=== PATIENT | female | born 1935 | race Caucasian/White ===

== ENCOUNTER 2021-04-10 11:43 | Inpatient (IN) ==
[2021-04-10] MEDS ORDERED: Isovue-370 500 ML BOTTLE IVP ONE (12:27)
[2021-04-10] MEDS ORDERED: Tdap (Boostrix) Vaccine 0.5 ML SYRINGE IM ONE (12:33)
[2021-04-10] MEDS ORDERED: *HR* HYDROcodone/Acet 5/325 mg TABLET PO ONE (12:33)
[2021-04-10 12:56] LABS: Basophils # 0.1 K/mcL (0.0-0.2); Basophils % 0.8 %; Eosinophils # 0.1 K/mcL (0.0-0.6); Eosinophils % 1.2 %; Hematocrit 37.1 % (35.3-44.9); Hemoglobin 11.7 g/dL (11.5-15.4); Immature Granulocytes % 0.5 % (0-4); Lymphocytes # 2.6 K/mcL (0.6-4.6); Mean Corpuscular HGB Conc 31.5 g/dL (31.6-35.5); Mean Corpuscular Hemoglobin 27.9 pg (28.0-33.3); Mean Corpuscular Volume 88.5 fL (83.0-100.0); Mean Platelet Volume 10.8 fL (9.4-12.4); Monocytes # 1.2 K/mcL (0.0-1.3); Monocytes % 16.3 %; Neutrophils # 3.4 K/mcL (1.6-8.9); Platelet Count 169 K/mcL (140-400); Red Blood Count 4.19 M/mcL (3.82-4.97); Red Cell Distribution Width 17.4 % (11.5-14.5); Segmented Neutrophils % 46.2 %; White Blood Count 7.4 K/mcL (4.3-11.1)
[2021-04-10 13:07] LABS: INR 1.3; Prothrombin Time 14.9 Seconds (9.4-12.1)
[2021-04-10 13:10] LABS: Activated Partial Thrombo Time 32.8 Seconds (26.0-36.0); Albumin 3.5 g/dL (3.5-5.7); Albumin/Globulin Ratio 1.1 (1.1-2.2); Bilirubin,Direct 0.1 mg/dL (0.0-0.2); Bilirubin,Indirect 0.3 mg/dL (0.0-1.0); Bilirubin,Total 0.4 mg/dL (0.3-1.0); Calcium 9.4 mg/dL (8.6-10.3); Globulin 3.3 g/dL (2.4-3.5); Potassium 4.2 mEq/L (3.5-5.1); Total Protein 6.8 g/dL (6.4-8.9); Troponin I 0.03 ng/mL (< 0.04)
[2021-04-10] MEDS ORDERED: *HR* FentaNYL (PF) 100 MCG/2 ML VIAL IVP ONE (16:26)
[2021-04-10] MEDS ORDERED: *HR* FentaNYL (PF) 100 MCG/2 ML VIAL ONE (16:29)
[2021-04-10] MEDS ORDERED: Mag Hydrox/Al Hydrox/Simeth 30 ML UDC PO PRN (17:34)
[2021-04-10] MEDS ORDERED: Acetaminophen 325 MG TABLET PO PRN (17:34)
[2021-04-10] MEDS ORDERED: Naloxone 0.4 MG/ML INJ IVP PRN (17:34)
[2021-04-10] MEDS ORDERED: *HR* Dextrose 50 % in Water (Syg) 50 ML SYRINGE IVP PRN (17:36)
[2021-04-10] MEDS ORDERED: D5% in Water 1,000 ML IVC PRN (17:36)
[2021-04-10] MEDS ORDERED: Dextrose Gel 15 GM/37.5 ML TUBE PO PRN ×2 (17:36)
[2021-04-10] MEDS: Insulin LISPRO 300 UNITS/3 ML VIAL SUBQ SCH (21:04)
[2021-04-10] MEDS: *HR* OxyCODONE Immed Rel 5 MG TABLET PO PRN (21:12)
[2021-04-10] MEDS: traZODone 50 MG TABLET PO SCH (21:13)
[2021-04-10] MEDS: Apixaban 2.5 MG TABLET PO SCH (21:13)
[2021-04-10] MEDS: Insulin DETEMIR 100 UNIT/ML X5UNITS SUBQ SCH (21:13)
[2021-04-10] MEDS: Pregabalin 25 MG CAPSULE PO SCH (21:13)
[2021-04-11] MEDS ORDERED: *HR* Metoprolol 5 MG/5 ML VIAL IVP ONE ×4 (04:17→06:18)
[2021-04-11 04:40] LABS: Hematocrit 35.7 % (35.3-44.9); Hemoglobin 11.4 g/dL (11.5-15.4); Mean Corpuscular HGB Conc 31.9 g/dL (31.6-35.5); Mean Corpuscular Hemoglobin 27.9 pg (28.0-33.3); Mean Corpuscular Volume 87.3 fL (83.0-100.0); Mean Platelet Volume 10.6 fL (9.4-12.4); Platelet Count 158 K/mcL (140-400); Red Blood Count 4.09 M/mcL (3.82-4.97); Red Cell Distribution Width 17.1 % (11.5-14.5); White Blood Count 7.4 K/mcL (4.3-11.1)
[2021-04-11 04:55] LABS: Calcium 8.9 mg/dL (8.6-10.3); Potassium 4.2 mEq/L (3.5-5.1)
[2021-04-11] MEDS ORDERED: *HR* Metoprolol 5 MG/5 ML VIAL IVP PRN (08:48)
[2021-04-11] MEDS: allopurinoL 100 MG TABLET PO SCH (09:09)
[2021-04-11] MEDS: hydroCHLOROthiazide 25 MG TABLET PO SCH (09:10)
[2021-04-11] MEDS: Furosemide 20 MG TABLET PO SCH (09:10)
[2021-04-11] MEDS: Pregabalin 25 MG CAPSULE PO SCH ×2 (09:10→20:56)
[2021-04-11] MEDS: Insulin DETEMIR 100 UNIT/ML X5UNITS SUBQ SCH ×2 (09:10→20:57)
[2021-04-11] MEDS: Insulin LISPRO 300 UNITS/3 ML VIAL SUBQ SCH ×4 (09:12→20:51)
[2021-04-11] MEDS: Apixaban 2.5 MG TABLET PO SCH (20:56)
[2021-04-11] MEDS: traZODone 50 MG TABLET PO SCH (20:57)
[2021-04-12] MEDS: *HR* OxyCODONE Immed Rel 5 MG TABLET PO PRN ×2 (02:37→16:08)
[2021-04-12 03:11] LABS: Calcium 8.8 mg/dL (8.6-10.3); Potassium 4.1 mEq/L (3.5-5.1)
[2021-04-12 03:16] LABS: Hematocrit 34.5 % (35.3-44.9); Hemoglobin 10.7 g/dL (11.5-15.4); Mean Corpuscular Hemoglobin 27.3 pg (28.0-33.3); Mean Platelet Volume 11.9 fL (9.4-12.4); Platelet Count 158 K/mcL (140-400); Red Blood Count 3.92 M/mcL (3.82-4.97); Red Cell Distribution Width 17.2 % (11.5-14.5); White Blood Count 7.4 K/mcL (4.3-11.1)
[2021-04-12] MEDS: Insulin LISPRO 300 UNITS/3 ML VIAL SUBQ SCH ×4 (08:00→20:32)
[2021-04-12] MEDS: Insulin DETEMIR 100 UNIT/ML X5UNITS SUBQ SCH ×2 (08:00→20:45)
[2021-04-12] MEDS: allopurinoL 100 MG TABLET PO SCH (08:01)
[2021-04-12] MEDS: Furosemide 20 MG TABLET PO SCH (08:01)
[2021-04-12] MEDS: Pregabalin 25 MG CAPSULE PO SCH ×2 (08:02→20:45)
[2021-04-12] MEDS: hydroCHLOROthiazide 25 MG TABLET PO SCH (08:04)
[2021-04-12] MEDS: traZODone 50 MG TABLET PO SCH (20:44)
[2021-04-12] MEDS: Melatonin 3 MG TABLET PO PRN (20:44)
[2021-04-12] MEDS: Apixaban 2.5 MG TABLET PO SCH (20:44)
[2021-04-13] MEDS: Insulin LISPRO 300 UNITS/3 ML VIAL SUBQ SCH ×4 (08:08→21:18)
[2021-04-13 08:57] LABS: Hematocrit 35.4 % (35.3-44.9); Hemoglobin 10.9 g/dL (11.5-15.4); Mean Corpuscular HGB Conc 30.8 g/dL (31.6-35.5); Mean Corpuscular Volume 87.8 fL (83.0-100.0); Mean Platelet Volume 11.6 fL (9.4-12.4); Platelet Count 164 K/mcL (140-400); Red Blood Count 4.03 M/mcL (3.82-4.97); Red Cell Distribution Width 16.6 % (11.5-14.5); White Blood Count 6.7 K/mcL (4.3-11.1)
[2021-04-13 09:24] LABS: Calcium 8.9 mg/dL (8.6-10.3)
[2021-04-13] MEDS: *HR* HYDROcodone/Acet 5/325 mg TABLET PO PRN (09:34)
[2021-04-13] MEDS: Pregabalin 25 MG CAPSULE PO SCH ×2 (09:35→21:17)
[2021-04-13] MEDS: allopurinoL 100 MG TABLET PO SCH (09:35)
[2021-04-13] MEDS: Insulin DETEMIR 100 UNIT/ML X5UNITS SUBQ SCH ×2 (09:36→21:18)
[2021-04-13] MEDS: Furosemide 20 MG TABLET PO SCH (09:36)
[2021-04-13] MEDS: *HR* OxyCODONE Immed Rel 5 MG TABLET PO PRN (13:19)
[2021-04-13] MEDS ORDERED: *HR* HYDROmorphone 2 MG/ML SYRINGE IVP ONE (15:10)
[2021-04-13] MEDS: traZODone 50 MG TABLET PO SCH (21:17)
[2021-04-13] MEDS: Apixaban 2.5 MG TABLET PO SCH (21:17)
[2021-04-14 06:02] LABS: Hematocrit 36.4 % (35.3-44.9); Hemoglobin 11.6 g/dL (11.5-15.4); Mean Corpuscular HGB Conc 31.9 g/dL (31.6-35.5); Mean Corpuscular Hemoglobin 27.4 pg (28.0-33.3); Mean Corpuscular Volume 86.1 fL (83.0-100.0); Mean Platelet Volume 11.6 fL (9.4-12.4); Platelet Count 150 K/mcL (140-400); Red Blood Count 4.23 M/mcL (3.82-4.97); Red Cell Distribution Width 16.9 % (11.5-14.5); White Blood Count 7.6 K/mcL (4.3-11.1)
[2021-04-14 06:13] LABS: Calcium 9.1 mg/dL (8.6-10.3); Potassium 4.7 mEq/L (3.5-5.1)
[2021-04-14] MEDS: *HR* HYDROcodone/Acet 5/325 mg TABLET PO PRN ×2 (09:24→23:24)
[2021-04-14] MEDS: Pregabalin 25 MG CAPSULE PO SCH (09:24)
[2021-04-14] MEDS: Insulin DETEMIR 100 UNIT/ML X5UNITS SUBQ SCH (09:25)
[2021-04-14] MEDS: allopurinoL 100 MG TABLET PO SCH (09:25)
[2021-04-14] MEDS: Furosemide 20 MG TABLET PO SCH (09:25)
[2021-04-14] MEDS: Insulin LISPRO 300 UNITS/3 ML VIAL SUBQ SCH ×3 (09:25→17:22)
[2021-04-14] MEDS ORDERED: Semaglutide [Ozempic] 1 MG/0.75 ML Pen.Injctr SQ SCH (18:41)
[2021-04-14] MEDS: traZODone 50 MG TABLET PO SCH (23:24)
[2021-04-14] MEDS: Apixaban 2.5 MG TABLET PO SCH (23:24)
[2021-04-15] MEDS: Insulin LISPRO 300 UNITS/3 ML VIAL SUBQ SCH ×5 (04:00→20:29)
[2021-04-15] MEDS: Insulin DETEMIR 100 UNIT/ML X5UNITS SUBQ SCH ×3 (04:01→20:30)
[2021-04-15] MEDS: Pregabalin 25 MG CAPSULE PO SCH ×3 (04:01→20:23)
[2021-04-15] MEDS: *HR* OxyCODONE Immed Rel 5 MG TABLET PO PRN ×2 (04:07→11:47)
[2021-04-15] MEDS: Furosemide 20 MG TABLET PO SCH (08:05)
[2021-04-15] MEDS: allopurinoL 100 MG TABLET PO SCH (08:06)
[2021-04-15 11:50] LABS: Bacteria,Urine Many per hpf (None-Few); Bilirubin,Urine Negative (Negative); Blood,Urine Negative (Negative); Clarity,Urine Clear (Clear); Color,Urine Yellow (Yellow); Glucose,Urine (UA) Normal (Normal); Hyaline Casts,Urine Few per lpf (None Seen); Ketones,Urine Negative (Negative); Leukocyte Esterase,Urine Moderate (Negative); Mucus,Urine Few per lpf (None-Few); Nitrite,Urine Positive (Negative); PH,Urine 5.5 pH Units (5.0-8.0); Protein,Urine Negative (Neg-Trace); RBC,Urine 0-3 per hpf (0-3); Specific Gravity,Urine 1.016 (1.010-1.025); Squamous Epithelial Cell,Urine Few per hpf (None-Few); Urobilinogen,Urine Normal (Normal)
[2021-04-15] MEDS: traZODone 50 MG TABLET PO SCH (20:22)
[2021-04-15] MEDS: Apixaban 2.5 MG TABLET PO SCH (20:23)
[2021-04-15] MEDS: Melatonin 3 MG TABLET PO PRN (20:24)
[2021-04-16] MEDS: *HR* OxyCODONE Immed Rel 5 MG TABLET PO PRN (08:21)
[2021-04-16] MEDS: Furosemide 20 MG TABLET PO SCH (08:22)
[2021-04-16] MEDS: Pregabalin 25 MG CAPSULE PO SCH ×2 (08:22→20:14)
[2021-04-16] MEDS: allopurinoL 100 MG TABLET PO SCH (08:22)
[2021-04-16] MEDS: Insulin DETEMIR 100 UNIT/ML X5UNITS SUBQ SCH ×2 (08:27→21:28)
[2021-04-16] MEDS: Insulin LISPRO 300 UNITS/3 ML VIAL SUBQ SCH ×4 (09:25→20:33)
[2021-04-16 14:54] LABS: Adenovirus Not Detected (Not Detect); Bordetella Pertussis Not Detected (Not Detect); Chlamydophila pneumoniae Not Detected (Not Detect); Coronavirus 229E Not Detected (Not Detect); Coronavirus HKU1 Not Detected (Not Detect); Coronavirus NL63 Not Detected (Not Detect); Coronavirus OC43 Not Detected (Not Detect); Human Metapneumovirus Not Detected (Not Detect); Human Rhinovirus/Enterovirus Not Detected (Not Detect); Influenza A Subtype 2009 H1 Not Detected (Not Detect); Influenza B Not Detected (Not Detect); Mycoplasma pneumoniae Not Detected (Not Detect); Parainfluenza Virus 1 Not Detected (Not Detect); Parainfluenza Virus 2 Not Detected (Not Detect); Parainfluenza Virus 3 Not Detected (Not Detect); Parainfluenza Virus 4 Not Detected (Not Detect); Respiratory Syncytial Virus Not Detected (Not Detect)
[2021-04-16 14:59] LABS: SARS-CoV-2 DETECTED (Not Detect)
[2021-04-16] MEDS: traZODone 50 MG TABLET PO SCH (20:15)
[2021-04-16] MEDS: Apixaban 2.5 MG TABLET PO SCH (20:15)
[2021-04-17] MEDS: Insulin LISPRO 300 UNITS/3 ML VIAL SUBQ SCH ×4 (08:07→20:14)
[2021-04-17] MEDS: allopurinoL 100 MG TABLET PO SCH (10:09)
[2021-04-17] MEDS: Pregabalin 25 MG CAPSULE PO SCH ×2 (10:09→20:24)
[2021-04-17] MEDS: Furosemide 20 MG TABLET PO SCH (10:09)
[2021-04-17] MEDS: Insulin DETEMIR 100 UNIT/ML X5UNITS SUBQ SCH (10:12)
[2021-04-17] MEDS: *HR* HYDROcodone/Acet 5/325 mg TABLET PO PRN (10:36)
[2021-04-17 13:13] LABS: Estimated Average Glucose 160 mg/dl; Hemoglobin A1C 7.2 %
[2021-04-17] MEDS: traZODone 50 MG TABLET PO SCH (20:24)
[2021-04-17] MEDS: Apixaban 2.5 MG TABLET PO SCH (20:24)
[2021-04-18] MEDS: Pregabalin 25 MG CAPSULE PO SCH ×2 (09:06→20:50)
[2021-04-18] MEDS: Insulin LISPRO 300 UNITS/3 ML VIAL SUBQ SCH ×4 (09:06→20:50)
[2021-04-18] MEDS: allopurinoL 100 MG TABLET PO SCH (09:07)
[2021-04-18] MEDS: Furosemide 20 MG TABLET PO SCH (09:07)
[2021-04-18] MEDS: Ondansetron ODT 4 MG TAB.RAPDIS SL PRN (16:47)
[2021-04-18] MEDS: *HR* OxyCODONE Immed Rel 5 MG TABLET PO PRN (16:47)
[2021-04-18] MEDS: Apixaban 2.5 MG TABLET PO SCH (20:49)
[2021-04-18] MEDS: traZODone 50 MG TABLET PO SCH (20:50)
[2021-04-19] MEDS: Pregabalin 25 MG CAPSULE PO SCH ×2 (07:52→21:00)
[2021-04-19] MEDS: Furosemide 20 MG TABLET PO SCH (07:52)
[2021-04-19] MEDS: *HR* OxyCODONE Immed Rel 5 MG TABLET PO PRN (07:52)
[2021-04-19] MEDS: Insulin LISPRO 300 UNITS/3 ML VIAL SUBQ SCH ×4 (08:03→20:53)
[2021-04-19] MEDS: allopurinoL 100 MG TABLET PO SCH (09:55)
[2021-04-19] MEDS ORDERED: Perflutren Lipid Microsphere 1.3 ML in 0.9 % Sodium Chloride 8.7 ML IVP PRN (13:01)
[2021-04-19 17:24] LABS: Hematocrit 37.2 % (35.3-44.9); Hemoglobin 11.1 g/dL (11.5-15.4); Mean Corpuscular HGB Conc 29.8 g/dL (31.6-35.5); Mean Corpuscular Hemoglobin 27.1 pg (28.0-33.3); Mean Platelet Volume 11.1 fL (9.4-12.4); Platelet Count 230 K/mcL (140-400); Red Blood Count 4.09 M/mcL (3.82-4.97); Red Cell Distribution Width 17.3 % (11.5-14.5); White Blood Count 7.1 K/mcL (4.3-11.1)
[2021-04-19 17:40] LABS: Calcium 8.8 mg/dL (8.6-10.3); Potassium 5.6 mEq/L (3.5-5.1)
[2021-04-19] MEDS: traZODone 50 MG TABLET PO SCH (21:00)
[2021-04-19] MEDS: Apixaban 2.5 MG TABLET PO SCH (21:00)
[2021-04-19] MEDS ORDERED: 0.9 % Sodium Chloride 1,000 ML IV ONE (22:33)
[2021-04-20 07:04] LABS: Basophils % 0.3 %; Eosinophils # 0.4 K/mcL (0.0-0.6); Eosinophils % 4.4 %; Hematocrit 40.8 % (35.3-44.9); Immature Granulocytes % 0.6 % (0-4); Lymphocytes # 2.9 K/mcL (0.6-4.6); Lymphocytes % 30.3 %; Mean Corpuscular HGB Conc 29.4 g/dL (31.6-35.5); Mean Corpuscular Hemoglobin 26.9 pg (28.0-33.3); Mean Corpuscular Volume 91.5 fL (83.0-100.0); Mean Platelet Volume 10.7 fL (9.4-12.4); Monocytes # 0.9 K/mcL (0.0-1.3); Monocytes % 9.3 %; Neutrophils # 5.2 K/mcL (1.6-8.9); Platelet Count 244 K/mcL (140-400); Red Blood Count 4.46 M/mcL (3.82-4.97); Red Cell Distribution Width 17.2 % (11.5-14.5); Segmented Neutrophils % 55.1 %; White Blood Count 9.4 K/mcL (4.3-11.1)
[2021-04-20] MEDS: Insulin LISPRO 300 UNITS/3 ML VIAL SUBQ SCH ×4 (08:11→20:27)
[2021-04-20] MEDS: Furosemide 20 MG TABLET PO SCH (10:21)
[2021-04-20] MEDS: allopurinoL 100 MG TABLET PO SCH (10:21)
[2021-04-20] MEDS: Pregabalin 25 MG CAPSULE PO SCH ×2 (10:22→20:25)
[2021-04-20 20:02] LABS: Albumin 3.2 g/dL (3.5-5.7); Albumin/Globulin Ratio 0.9 (1.1-2.2); Bilirubin,Total 0.6 mg/dL (0.3-1.0); Calcium 9.1 mg/dL (8.6-10.3); Globulin 3.5 g/dL (2.4-3.5); Potassium 5.9 mEq/L (3.5-5.1); Total Protein 6.7 g/dL (6.4-8.9)
[2021-04-20] MEDS: Apixaban 2.5 MG TABLET PO SCH (20:25)
[2021-04-20] MEDS: traZODone 50 MG TABLET PO SCH (20:25)
[2021-04-21] MEDS: Insulin LISPRO 300 UNITS/3 ML VIAL SUBQ SCH ×4 (09:29→21:03)
[2021-04-21] MEDS: Pregabalin 25 MG CAPSULE PO SCH ×2 (10:19→20:58)
[2021-04-21] MEDS: allopurinoL 100 MG TABLET PO SCH (10:19)
[2021-04-21] MEDS: Furosemide 20 MG TABLET PO SCH (10:19)
[2021-04-21] MEDS: *HR* HYDROcodone/Acet 5/325 mg TABLET PO PRN (16:26)
[2021-04-21] MEDS: DilTIAZem 50 MG/50 ML IV.SOLN IVC SCH (17:28)
[2021-04-21] MEDS: *HR* OxyCODONE Immed Rel 5 MG TABLET PO PRN (17:29)
[2021-04-21] MEDS: traZODone 50 MG TABLET PO SCH (20:58)
[2021-04-21] MEDS: Apixaban 2.5 MG TABLET PO SCH (20:59)
[2021-04-22] MEDS: DilTIAZem 50 MG/50 ML IV.SOLN IVC SCH ×2 (06:24→18:00)
[2021-04-22] MEDS: Insulin LISPRO 300 UNITS/3 ML VIAL SUBQ SCH ×4 (12:08→22:41)
[2021-04-22] MEDS: Pregabalin 25 MG CAPSULE PO SCH ×2 (12:09→20:10)
[2021-04-22] MEDS: Furosemide 20 MG TABLET PO SCH (12:09)
[2021-04-22] MEDS: allopurinoL 100 MG TABLET PO SCH (12:10)
[2021-04-22] MEDS: *HR* OxyCODONE Immed Rel 5 MG TABLET PO PRN (20:09)
[2021-04-22] MEDS: traZODone 50 MG TABLET PO SCH (20:10)
[2021-04-22] MEDS: Ondansetron ODT 4 MG TAB.RAPDIS SL PRN (20:10)
[2021-04-22] MEDS: Apixaban 2.5 MG TABLET PO SCH (20:11)
[2021-04-23 06:16] LABS: Hematocrit 33.9 % (35.3-44.9); Hemoglobin 10.5 g/dL (11.5-15.4); Mean Corpuscular Hemoglobin 27.9 pg (28.0-33.3); Mean Corpuscular Volume 90.2 fL (83.0-100.0); Mean Platelet Volume 10.4 fL (9.4-12.4); Platelet Count 235 K/mcL (140-400); Red Blood Count 3.76 M/mcL (3.82-4.97); Red Cell Distribution Width 17.2 % (11.5-14.5); White Blood Count 7.8 K/mcL (4.3-11.1)
[2021-04-23 06:44] LABS: Calcium 8.8 mg/dL (8.6-10.3); Potassium 3.8 mEq/L (3.5-5.1)
[2021-04-23] MEDS: Pregabalin 25 MG CAPSULE PO SCH ×2 (09:05→21:14)
[2021-04-23] MEDS: Furosemide 20 MG TABLET PO SCH (09:06)
[2021-04-23] MEDS: Insulin LISPRO 300 UNITS/3 ML VIAL SUBQ SCH ×4 (09:06→21:09)
[2021-04-23] MEDS: allopurinoL 100 MG TABLET PO SCH (09:06)
[2021-04-23] MEDS: Apixaban 2.5 MG TABLET PO SCH (21:14)
[2021-04-23] MEDS: traZODone 50 MG TABLET PO SCH (21:14)
[2021-04-24] MEDS: allopurinoL 100 MG TABLET PO SCH (08:52)
[2021-04-24] MEDS: Pregabalin 25 MG CAPSULE PO SCH ×2 (08:52→20:32)
[2021-04-24] MEDS: Furosemide 20 MG TABLET PO SCH (08:52)
[2021-04-24] MEDS: Insulin LISPRO 300 UNITS/3 ML VIAL SUBQ SCH ×4 (08:54→18:47)
[2021-04-24] MEDS: traZODone 50 MG TABLET PO SCH (20:33)
[2021-04-24] MEDS: Apixaban 2.5 MG TABLET PO SCH (20:33)
[2021-04-24] MEDS: *HR* OxyCODONE Immed Rel 5 MG TABLET PO PRN (21:13)
[2021-04-25 05:31] LABS: Basophils % 0.4 %; Eosinophils # 0.3 K/mcL (0.0-0.6); Eosinophils % 4.6 %; Hematocrit 33.3 % (35.3-44.9); Hemoglobin 10.1 g/dL (11.5-15.4); Immature Granulocytes % 0.6 % (0-4); Lymphocytes % 28.6 %; Mean Corpuscular HGB Conc 30.3 g/dL (31.6-35.5); Mean Corpuscular Hemoglobin 27.1 pg (28.0-33.3); Mean Corpuscular Volume 89.3 fL (83.0-100.0); Mean Platelet Volume 10.8 fL (9.4-12.4); Monocytes # 0.8 K/mcL (0.0-1.3); Neutrophils # 3.7 K/mcL (1.6-8.9); Platelet Count 215 K/mcL (140-400); Red Blood Count 3.73 M/mcL (3.82-4.97); Segmented Neutrophils % 53.8 %; White Blood Count 6.9 K/mcL (4.3-11.1)
[2021-04-25 05:55] LABS: Calcium 8.7 mg/dL (8.6-10.3); Potassium 3.5 mEq/L (3.5-5.1)
[2021-04-25] MEDS: Insulin LISPRO 300 UNITS/3 ML VIAL SUBQ SCH ×4 (08:08→20:54)
[2021-04-25] MEDS: Pregabalin 25 MG CAPSULE PO SCH ×2 (08:16→20:52)
[2021-04-25] MEDS: Furosemide 20 MG TABLET PO SCH (08:16)
[2021-04-25] MEDS: allopurinoL 100 MG TABLET PO SCH (08:19)
[2021-04-25] MEDS: *HR* OxyCODONE Immed Rel 5 MG TABLET PO PRN (08:28)
[2021-04-25] MEDS: Apixaban 2.5 MG TABLET PO SCH (20:52)
[2021-04-25] MEDS: traZODone 50 MG TABLET PO SCH (20:54)
[2021-04-26] MEDS: Insulin LISPRO 300 UNITS/3 ML VIAL SUBQ SCH ×4 (08:42→21:28)
[2021-04-26] MEDS: Pregabalin 25 MG CAPSULE PO SCH ×2 (08:42→21:31)
[2021-04-26] MEDS: Furosemide 20 MG TABLET PO SCH (08:42)
[2021-04-26] MEDS: allopurinoL 100 MG TABLET PO SCH (08:42)
[2021-04-26] MEDS: Ondansetron ODT 4 MG TAB.RAPDIS SL PRN (18:06)
[2021-04-26] MEDS: traZODone 50 MG TABLET PO SCH (21:32)
[2021-04-26] MEDS: Apixaban 2.5 MG TABLET PO SCH (21:32)
[2021-04-27] MEDS: Pregabalin 25 MG CAPSULE PO SCH (08:07)
[2021-04-27] MEDS: Furosemide 20 MG TABLET PO SCH (08:07)
[2021-04-27] MEDS: allopurinoL 100 MG TABLET PO SCH (08:07)
[2021-04-27] MEDS: Insulin LISPRO 300 UNITS/3 ML VIAL SUBQ SCH (08:14)
[2021-04-27 11:42] VITALS: BP 104/63; PULSE 72; TEMP 98.4; O2SAT 93
== END 2021-04-27 13:44 | DRG 562 ==
LOC: 3ANU 11:43 → EMEROOARM 11:43 → SUATTDRO 15:56 → 3ANU 17:24
PROVIDERS: ADMIT Family Medicine; ATTEND General Practice

== ENCOUNTER 2021-05-19 00:03 | Observation (INO) ==
[2021-05-19] MEDS ORDERED: methylPREDNISolone 125 MG/2 ML VIAL IVP ONE (00:33)
[2021-05-19] MEDS ORDERED: Ipratropium/Albuterol Neb 3 ML IH ONE ×2 (00:48→01:12)
[2021-05-19 01:05] LABS: Basophils % 0.3 %; Eosinophils # 0.4 K/mcL (0.0-0.6); Hematocrit 33.8 % (35.3-44.9); Hemoglobin 10.4 g/dL (11.5-15.4); Immature Granulocytes % 0.4 % (0-4); Lymphocytes # 2.2 K/mcL (0.6-4.6); Lymphocytes % 15.8 %; Mean Corpuscular HGB Conc 30.8 g/dL (31.6-35.5); Mean Corpuscular Volume 90.9 fL (83.0-100.0); Mean Platelet Volume 10.3 fL (9.4-12.4); Monocytes # 1.5 K/mcL (0.0-1.3); Monocytes % 10.4 %; Neutrophils # 9.8 K/mcL (1.6-8.9); Platelet Count 243 K/mcL (140-400); Red Blood Count 3.72 M/mcL (3.82-4.97); Red Cell Distribution Width 18.4 % (11.5-14.5); Segmented Neutrophils % 70.1 %
[2021-05-19] MEDS ORDERED: Cefepime HCl 2,000 MG in 0.9 % Sodium Chloride Mini Bag 100 ML IVPB STA (01:15)
[2021-05-19] MEDS ORDERED: 0.9 % Sodium Chloride 500 ML IV ONE (01:16)
[2021-05-19] MEDS ORDERED: Furosemide 40 MG/4 ML VIAL IVP ONE (01:20)
[2021-05-19 01:24] LABS: BUN/Creatinine Ratio 11 (6-26); Blood Urea Nitrogen 12 mg/dL (8-23); Carbon Dioxide 27 mEq/L (23-29); Chloride 103 mEq/L (98-107); Glucose 145 mg/dL (70-105); Osmolality,Calculated 286 (280-300); Potassium 4.2 mEq/L (3.5-5.1); Sodium 137 mEq/L (136-145); Troponin I < 0.03 ng/mL (< 0.04); eGFR For African Americans 59 (> 60); eGFR For Non-African Americans 49 (> 60)
[2021-05-19 01:39] LABS: Influenza A PCR Negative (Negative); Influenza B PCR Negative (Negative); Resp. Syncytial Virus PCR Negative (Negative)
[2021-05-19 01:40] LABS: SARS-CoV-2 by PCR (In House) Negative (Negative)
[2021-05-19] MEDS ORDERED: Vancomycin 1,500 MG/265 ML IV.SOLN IVPB ONE (02:00)
[2021-05-19] MEDS ORDERED: Melatonin 3 MG TABLET PO PRN (03:09)
[2021-05-19] MEDS ORDERED: Ondansetron 4 MG/2 ML VIAL IVP PRN (03:09)
[2021-05-19] MEDS ORDERED: Naloxone 0.4 MG/ML INJ IVP PRN (03:09)
[2021-05-19] MEDS ORDERED: Acetaminophen 325 MG TABLET PO PRN (03:09)
[2021-05-19 04:37] LABS: ABG Base Excess 3 mEq/L (-2 to 3); ABG HCO3 29 mEq/L (21-27); ABG Oxygen Saturation 96 % (95-98); ABG PCO2 45 mmHg (35-45); ABG PH 7.41 pH Units (7.32-7.45); ABG PO2 84 mmHg (85-104); ABG TCO2 30 mEq/L (20-26)
[2021-05-19] MEDS ORDERED: D5% in Water 1,000 ML IVC PRN (07:43)
[2021-05-19] MEDS ORDERED: Dextrose Gel 15 GM/37.5 ML TUBE PO PRN ×2 (07:43)
[2021-05-19] MEDS ORDERED: *HR* Dextrose 50 % in Water (Syg) 50 ML SYRINGE IVP PRN (07:43)
[2021-05-19] MEDS ORDERED: Albuterol 2.5 MG/3 ML NEBULIZER IH PRN (07:45)
[2021-05-19] MEDS ORDERED: Furosemide 40 MG/4 ML VIAL IVP SCH (09:00)
[2021-05-19] MEDS: predniSONE 20 MG TABLET PO SCH (09:14)
[2021-05-19] MEDS: Insulin LISPRO 300 UNITS/3 ML VIAL SUBQ SCH ×3 (12:00→22:24)
[2021-05-20 01:57] LABS: Basophils % 0.2 %; Hematocrit 31.9 % (35.3-44.9); Immature Granulocytes % 0.5 % (0-4); Lymphocytes # 1.2 K/mcL (0.6-4.6); Lymphocytes % 9.5 %; Mean Corpuscular HGB Conc 31.3 g/dL (31.6-35.5); Mean Corpuscular Volume 89.4 fL (83.0-100.0); Monocytes # 1.1 K/mcL (0.0-1.3); Monocytes % 8.4 %; Neutrophils # 10.3 K/mcL (1.6-8.9); Platelet Count 255 K/mcL (140-400); Red Blood Count 3.57 M/mcL (3.82-4.97); Red Cell Distribution Width 18.2 % (11.5-14.5); Segmented Neutrophils % 81.4 %; White Blood Count 12.7 K/mcL (4.3-11.1)
[2021-05-20 02:11] LABS: Calcium 8.9 mg/dL (8.6-10.3); Magnesium 1.9 mg/dL (1.6-2.6); Potassium 4.3 mEq/L (3.5-5.1)
[2021-05-20] MEDS: Insulin LISPRO 300 UNITS/3 ML VIAL SUBQ SCH ×4 (09:40→20:58)
[2021-05-20] MEDS: Pregabalin 25 MG CAPSULE PO SCH ×2 (09:45→20:58)
[2021-05-20] MEDS: Insulin DETEMIR 100 UNIT/ML X5UNITS SUBQ SCH ×2 (09:46→20:58)
[2021-05-20] MEDS: allopurinoL 100 MG TABLET PO SCH (09:46)
[2021-05-20] MEDS: Furosemide 40 MG TABLET PO SCH (09:46)
[2021-05-20] MEDS: predniSONE 20 MG TABLET PO SCH (09:46)
[2021-05-20] MEDS ORDERED: traZODone 50 MG TABLET PO SCH (21:00)
[2021-05-20] MEDS ORDERED: Apixaban 2.5 MG TABLET PO SCH (21:00)
[2021-05-21] MEDS: Insulin LISPRO 300 UNITS/3 ML VIAL SUBQ SCH ×2 (08:42→13:53)
[2021-05-21] MEDS: Furosemide 40 MG TABLET PO SCH (08:42)
[2021-05-21] MEDS: allopurinoL 100 MG TABLET PO SCH (08:42)
[2021-05-21] MEDS: predniSONE 20 MG TABLET PO SCH (08:42)
[2021-05-21] MEDS: Pregabalin 25 MG CAPSULE PO SCH (08:43)
[2021-05-21] MEDS: Insulin DETEMIR 100 UNIT/ML X5UNITS SUBQ SCH (08:48)
[2021-05-21 12:08] LABS: Calcium 8.8 mg/dL (8.6-10.3); Potassium 3.7 mEq/L (3.5-5.1)
[2021-05-21 14:45] VITALS: BP 111/52; PULSE 67; TEMP 98.2; O2SAT 95
[2021-05-21 15:07] LABS: Influenza A PCR Negative (Negative); Influenza B PCR Negative (Negative); Resp. Syncytial Virus PCR Negative (Negative)
[2021-05-21 15:08] LABS: SARS-CoV-2 by PCR (In House) Positive (Negative)
== END 2021-05-21 20:16 ==
LOC: EMEROOARM 00:03 → 3NENU 00:03
PROVIDERS: ADMIT Family Medicine; ATTEND Family Medicine

== ENCOUNTER 2021-07-18 20:43 | Inpatient (IN) ==
[2021-07-18] MEDS ORDERED: *HR* Dextrose 50 % in Water (Syg) 50 ML SYRINGE IVP ONE (20:49)
[2021-07-18 21:27] LABS: Basophils % 0.2 %; Eosinophils # 0.1 K/mcL (0.0-0.6); Eosinophils % 0.6 %; Immature Granulocytes % 0.8 % (0-4); Lymphocytes # 1.3 K/mcL (0.6-4.6); Lymphocytes % 12.2 %; Mean Corpuscular HGB Conc 29.6 g/dL (31.6-35.5); Mean Corpuscular Hemoglobin 28.3 pg (28.0-33.3); Mean Corpuscular Volume 95.6 fL (83.0-100.0); Mean Platelet Volume 10.9 fL (9.4-12.4); Monocytes # 0.9 K/mcL (0.0-1.3); Neutrophils # 8.4 K/mcL (1.6-8.9); Platelet Count 165 K/mcL (140-400); Red Blood Count 2.93 M/mcL (3.82-4.97); Red Cell Distribution Width 18.3 % (11.5-14.5); Segmented Neutrophils % 78.2 %; White Blood Count 10.7 K/mcL (4.3-11.1)
[2021-07-18 21:30] LABS: Hemoglobin 8.3 g/dL (11.5-15.4)
[2021-07-18 21:34] LABS: VBG HCO3 27 mEq/L (21-27); VBG PCO2 51 mmHg (41-51); VBG PH 7.33 pH Units (7.32-7.42); VBG PO2 81 mmHg (25-50)
[2021-07-18 21:35] LABS: INR 1.6; Prothrombin Time 17.6 Seconds (9.4-12.1)
[2021-07-18 21:37] LABS: Activated Partial Thrombo Time 30.4 Seconds (26.0-36.0)
[2021-07-18 21:50] LABS: Alanine Aminotransferase 28 Units/L (7-52); Albumin 3.4 g/dL (3.5-5.7); Albumin/Globulin Ratio 1.3 (1.1-2.2); Alkaline Phosphatase 54 Units/L (34-104); Aspartate Amino Transferase 21 Units/L (13-39); BUN/Creatinine Ratio 20 (6-26); Bilirubin,Direct 0.1 mg/dL (0.0-0.2); Bilirubin,Indirect 0.5 mg/dL (0.0-1.0); Bilirubin,Total 0.6 mg/dL (0.3-1.0); Blood Urea Nitrogen 30 mg/dL (8-23); Calcium 9.2 mg/dL (8.6-10.3); Carbon Dioxide 27 mEq/L (23-29); Chloride 107 mEq/L (98-107); Creatine Kinase 49 Units/L (30-223); Ethanol < 10 mg/dL (Less than 10); Globulin 2.6 g/dL (2.4-3.5); Glucose 45 mg/dL (70-105); Lipase 40 Units/L (11-82); Magnesium 2.2 mg/dL (1.6-2.6); Osmolality,Calculated 295 (280-300); Phosphorous 3.6 mg/dL (2.7-4.5); Potassium 4.7 mEq/L (3.5-5.1); Sodium 141 mEq/L (136-145); Troponin I 0.03 ng/mL (< 0.04); eGFR For African Americans 41 (> 60); eGFR For Non-African Americans 34 (> 60)
[2021-07-18] MEDS ORDERED: Furosemide 20 MG/2 ML VIAL IVP ONE (21:53)
[2021-07-18 22:08] LABS: Bacteria,Urine Moderate per hpf (None-Few); Bilirubin,Urine Negative (Negative); Blood,Urine Negative (Negative); Clarity,Urine Turbid (Clear); Color,Urine Yellow (Yellow); Glucose,Urine (UA) 50 mg/dL (Normal); Hyaline Casts,Urine Moderate per lpf (None Seen); Ketones,Urine Negative (Negative); Leukocyte Esterase,Urine Moderate (Negative); Mucus,Urine Few per lpf (None-Few); Nitrite,Urine Negative (Negative); Protein,Urine 30 mg/dL (Neg-Trace); RBC,Urine 0-3 per hpf (0-3); Squamous Epithelial Cell,Urine Few per hpf (None-Few); Urobilinogen,Urine Normal (Normal)
[2021-07-18 22:14] LABS: Amphetamine Screen,Urine Negative ng/mL (Cutoff=1000); Barbiturate Screen,Urine Negative ng/mL (Cutoff=200); Benzodiazepines Screen,Urine Negative ng/mL (Cutoff=200); Cannabinoid Screen,Urine Negative ng/mL (Cutoff = 50); Cocaine Screen,Urine Negative ng/mL (Cutoff= 300); Opiate Screen,Urine Negative ng/mL (Cutoff=300); Phencyclidine Screen,Urine Negative ng/mL (Cutoff=25)
[2021-07-18] MEDS ORDERED: cefTRIAXone 1,000 MG in 0.9 % Sodium Chloride Mini Bag 100 ML IVPB ONE (22:14)
[2021-07-19] MEDS: D5% in 0.9% NACL 1,000 ML IVC SCH ×2 (00:12→14:57)
[2021-07-19] MEDS ORDERED: D5% in Water 1,000 ML IVC PRN (01:32)
[2021-07-19] MEDS ORDERED: Dextrose 4 GM Chewable Tablets PO PRN ×2 (01:32)
[2021-07-19] MEDS ORDERED: *HR* Dextrose 50 % in Water (Syg) 50 ML SYRINGE IVP PRN (01:32)
[2021-07-19] MEDS ORDERED: Ondansetron 4 MG/2 ML VIAL IVP PRN (01:39)
[2021-07-19] MEDS ORDERED: Naloxone 0.4 MG/ML INJ IVP PRN (01:39)
[2021-07-19] MEDS ORDERED: *HR* Heparin 5,000 UNIT/ML VIAL IVP PRN ×2 (02:27)
[2021-07-19] MEDS ORDERED: Heparin 25,000UNIT/250ML 1/2NS 25,000 UNIT/250 ML IV.SOLN IVC SCH (02:30)
[2021-07-19] MEDS: Acetaminophen IV 1,000 MG/100 ML BAG IVPB SCH ×4 (02:53→20:31)
[2021-07-19 03:13] LABS: Hematocrit 26.6 % (35.3-44.9); Hemoglobin 7.9 g/dL (11.5-15.4); Mean Corpuscular HGB Conc 29.7 g/dL (31.6-35.5); Mean Corpuscular Volume 94.3 fL (83.0-100.0); Mean Platelet Volume 10.6 fL (9.4-12.4); Platelet Count 147 K/mcL (140-400); Red Blood Count 2.82 M/mcL (3.82-4.97); Red Cell Distribution Width 18.2 % (11.5-14.5); White Blood Count 9.1 K/mcL (4.3-11.1)
[2021-07-19 03:32] LABS: Calcium 8.8 mg/dL (8.6-10.3); Chol/HDL Ratio 2.4 (0-4.9); Potassium 4.1 mEq/L (3.5-5.1)
[2021-07-19 03:35] LABS: Troponin I 0.03 ng/mL (< 0.04)
[2021-07-19 03:37] LABS: Estimated Average Glucose 157 mg/dl; Hemoglobin A1C 7.1 %
[2021-07-19 03:49] LABS: Thyroid Stimulating Hormone 0.948 mcIU/mL (0.340-5.600)
[2021-07-19 03:51] LABS: Triiodothyronine (T3) Free 2.55 pg/mL (2.50-3.90)
[2021-07-19] MEDS: Insulin LISPRO 300 UNITS/3 ML VIAL SUBQ SCH ×3 (06:16→20:22)
[2021-07-19] MEDS ORDERED: traZODone 50 MG TABLET PO PRN (08:21)
[2021-07-19 09:56] LABS: Hematocrit 26.8 % (35.3-44.9); Hemoglobin 8.1 g/dL (11.5-15.4)
[2021-07-19] MEDS ORDERED: cefTRIAXone 1,000 MG in 0.9 % Sodium Chloride 10 ML IVP SCH (10:00)
[2021-07-19] MEDS: Budesonide/Formoterol 80/4.5 1 PUFF INH IH SCH ×2 (10:47→20:02)
[2021-07-19 11:09] LABS: Folate 22.1 ng/mL (3.0-16.0)
[2021-07-19] MEDS ORDERED: Haloperidol Lactate 5 MG/ML VIAL IM ONE (11:15)
[2021-07-19] MEDS: amLODIPine 5 MG TABLET PO SCH ×2 (12:21→17:05)
[2021-07-19] MEDS: Pregabalin 25 MG CAPSULE PO SCH ×3 (12:21→20:27)
[2021-07-19] MEDS: Aspirin Enteric Coated 81 MG Tablet PO SCH ×2 (12:21→17:08)
[2021-07-19] MEDS: Apixaban 2.5 MG TABLET PO SCH ×2 (12:23→17:05)
[2021-07-19] MEDS: allopurinoL 100 MG TABLET PO SCH ×2 (12:23→17:06)
[2021-07-19] MEDS: Insulin NPH/REG 70/30 100 UNIT/ML (x5UNIT) SUBQ SCH (20:22)
[2021-07-19] MEDS: Loratadine 10 MG TABLET PO SCH (20:27)
[2021-07-19] MEDS: cefTRIAXone 1,000 MG in 0.9 % Sodium Chloride 10 ML IVP SCH (20:31)
[2021-07-19] MEDS: Nystatin POWDER 30 GM BOTTLE TP SCH (20:31)
[2021-07-20] MEDS: D5% in 0.9% NACL 1,000 ML IVC SCH ×2 (00:30→11:18)
[2021-07-20] MEDS: Acetaminophen IV 1,000 MG/100 ML BAG IVPB SCH ×4 (01:58→22:41)
[2021-07-20] MEDS: Insulin LISPRO 300 UNITS/3 ML VIAL SUBQ SCH ×4 (01:58→17:26)
[2021-07-20 05:11] LABS: Hematocrit 27.6 % (35.3-44.9); Hemoglobin 8.6 g/dL (11.5-15.4); Mean Corpuscular HGB Conc 31.2 g/dL (31.6-35.5); Mean Corpuscular Volume 92.9 fL (83.0-100.0); Platelet Count 165 K/mcL (140-400); Red Blood Count 2.97 M/mcL (3.82-4.97); Red Cell Distribution Width 18.5 % (11.5-14.5)
[2021-07-20 05:31] LABS: Calcium 8.3 mg/dL (8.6-10.3); Magnesium 1.9 mg/dL (1.6-2.6); Phosphorous 3.3 mg/dL (2.7-4.5)
[2021-07-20] MEDS: Budesonide/Formoterol 80/4.5 1 PUFF INH IH SCH ×2 (07:50→20:00)
[2021-07-20] MEDS: allopurinoL 100 MG TABLET PO SCH (11:01)
[2021-07-20] MEDS: Aspirin Enteric Coated 81 MG Tablet PO SCH (11:01)
[2021-07-20] MEDS: Pregabalin 25 MG CAPSULE PO SCH ×2 (11:01→22:41)
[2021-07-20] MEDS: amLODIPine 5 MG TABLET PO SCH (11:01)
[2021-07-20] MEDS: Apixaban 2.5 MG TABLET PO SCH (11:01)
[2021-07-20] MEDS: Nystatin POWDER 30 GM BOTTLE TP SCH ×2 (11:03→22:42)
[2021-07-20] MEDS ORDERED: Insulin LISPRO 300 UNITS/3 ML VIAL SUBQ SCH (21:00)
[2021-07-20] MEDS: cefTRIAXone 1,000 MG in 0.9 % Sodium Chloride 10 ML IVP SCH (22:40)
[2021-07-20] MEDS: Loratadine 10 MG TABLET PO SCH (22:41)
[2021-07-20] MEDS: Insulin NPH/REG 70/30 100 UNIT/ML (x5UNIT) SUBQ SCH (22:42)
[2021-07-21] MEDS: Acetaminophen IV 1,000 MG/100 ML BAG IVPB SCH ×2 (02:17→11:59)
[2021-07-21] MEDS ORDERED: Furosemide 40 MG/4 ML VIAL IVP ONE (03:22)
[2021-07-21 05:35] LABS: Hematocrit 28.5 % (35.3-44.9); Hemoglobin 8.3 g/dL (11.5-15.4); Mean Corpuscular HGB Conc 29.1 g/dL (31.6-35.5); Mean Corpuscular Hemoglobin 27.6 pg (28.0-33.3); Mean Corpuscular Volume 94.7 fL (83.0-100.0); Mean Platelet Volume 10.9 fL (9.4-12.4); Platelet Count 160 K/mcL (140-400); Red Blood Count 3.01 M/mcL (3.82-4.97); Red Cell Distribution Width 18.4 % (11.5-14.5); White Blood Count 8.1 K/mcL (4.3-11.1)
[2021-07-21 06:39] LABS: Calcium 8.2 mg/dL (8.6-10.3); Potassium 4.1 mEq/L (3.5-5.1)
[2021-07-21] MEDS: Budesonide/Formoterol 80/4.5 1 PUFF INH IH SCH ×2 (07:41→20:35)
[2021-07-21] MEDS: amLODIPine 5 MG TABLET PO SCH (07:49)
[2021-07-21] MEDS ORDERED: Insulin LISPRO 300 UNITS/3 ML VIAL SUBQ SCH (08:47)
[2021-07-21] MEDS: Aspirin Enteric Coated 81 MG Tablet PO SCH (11:56)
[2021-07-21] MEDS: Pregabalin 25 MG CAPSULE PO SCH ×2 (11:57→20:02)
[2021-07-21] MEDS: Apixaban 2.5 MG TABLET PO SCH (11:57)
[2021-07-21] MEDS: allopurinoL 100 MG TABLET PO SCH (11:58)
[2021-07-21] MEDS: Nystatin POWDER 30 GM BOTTLE TP SCH ×2 (11:58→20:00)
[2021-07-21] MEDS: Furosemide 20 MG TABLET PO SCH (11:58)
[2021-07-21] MEDS: D5% in 0.9% NACL 1,000 ML IVC SCH (12:00)
[2021-07-21] MEDS: Insulin LISPRO 300 UNITS/3 ML VIAL SUBQ SCH ×2 (12:02→18:25)
[2021-07-21 13:34] LABS: Magnesium 1.9 mg/dL (1.6-2.6)
[2021-07-21] MEDS ORDERED: Acetaminophen 325 MG TABLET PO PRN (18:08)
[2021-07-21] MEDS: Loratadine 10 MG TABLET PO SCH (19:57)
[2021-07-21] MEDS: cefTRIAXone 1,000 MG in 0.9 % Sodium Chloride 10 ML IVP SCH (19:59)
[2021-07-21] MEDS ORDERED: Furosemide 20 MG/2 ML VIAL IVP ONE (20:35)
[2021-07-21] MEDS ORDERED: Insulin NPH/REG 70/30 100 UNIT/ML (x5UNIT) SUBQ SCH (21:00)
[2021-07-22 01:38] LABS: Calcium 8.1 mg/dL (8.6-10.3)
[2021-07-22] MEDS: Budesonide/Formoterol 80/4.5 1 PUFF INH IH SCH ×2 (07:38→20:37)
[2021-07-22] MEDS: Insulin LISPRO 300 UNITS/3 ML VIAL SUBQ SCH ×3 (09:29→18:34)
[2021-07-22] MEDS: Furosemide 20 MG TABLET PO SCH (09:30)
[2021-07-22] MEDS: Pregabalin 25 MG CAPSULE PO SCH ×2 (09:30→21:42)
[2021-07-22] MEDS: Apixaban 2.5 MG TABLET PO SCH (09:30)
[2021-07-22] MEDS: Aspirin Enteric Coated 81 MG Tablet PO SCH (09:30)
[2021-07-22] MEDS: allopurinoL 100 MG TABLET PO SCH (09:31)
[2021-07-22] MEDS: Nystatin POWDER 30 GM BOTTLE TP SCH ×2 (09:32→21:36)
[2021-07-22] MEDS: amLODIPine 5 MG TABLET PO SCH (09:32)
[2021-07-22] MEDS: Insulin NPH/REG 70/30 100 UNIT/ML (x5UNIT) SUBQ SCH ×2 (10:09→21:42)
[2021-07-22] MEDS ORDERED: Insulin LISPRO 300 UNITS/3 ML VIAL SUBQ SCH (18:11)
[2021-07-22] MEDS: Loratadine 10 MG TABLET PO SCH (21:30)
[2021-07-22] MEDS: cefTRIAXone 1,000 MG in 0.9 % Sodium Chloride 10 ML IVP SCH ×2 (21:34→21:53)
[2021-07-23] MEDS: Budesonide/Formoterol 80/4.5 1 PUFF INH IH SCH (07:46)
[2021-07-23] MEDS: Aspirin Enteric Coated 81 MG Tablet PO SCH (07:47)
[2021-07-23] MEDS: Furosemide 20 MG TABLET PO SCH (07:47)
[2021-07-23] MEDS: allopurinoL 100 MG TABLET PO SCH (07:49)
[2021-07-23] MEDS: Pregabalin 25 MG CAPSULE PO SCH (07:49)
[2021-07-23] MEDS: amLODIPine 5 MG TABLET PO SCH (07:49)
[2021-07-23] MEDS: Apixaban 2.5 MG TABLET PO SCH (07:49)
[2021-07-23] MEDS: Insulin NPH/REG 70/30 100 UNIT/ML (x5UNIT) SUBQ SCH (07:50)
[2021-07-23] MEDS: Insulin LISPRO 300 UNITS/3 ML VIAL SUBQ SCH ×2 (11:30→17:32)
[2021-07-23 13:45] LABS: Influenza A PCR Negative (Negative); Influenza B PCR Negative (Negative); Resp. Syncytial Virus PCR Negative (Negative)
[2021-07-23 13:46] LABS: SARS-CoV-2 by PCR (In House) Negative (Negative)
[2021-07-23 15:52] VITALS: BP 95/63; PULSE 102; TEMP 97; O2SAT 95
== END 2021-07-23 18:17 | DRG 689 ==
LOC: EMEROOARM 20:43 → 3NENU 20:43 → SUATTDRO 23:06 → 3NENU 23:45
PROVIDERS: ADMIT Student in an Organized Health Care Education/Training Program; ATTEND Internal Medicine